=== PATIENT | female | born 1950 | race Two or more races ===

== ENCOUNTER 2018-07-21 14:57 | Emergency (ER) | payer MEDICARE, OTHER ==
[2018-07-21 15:15] VITALS: BP 128/69
--- NOTE | 2018-07-21 16:35 | EDM.PDOC ---
ED HPI GENERAL MEDICAL PROBLEM - General Chief Complaint: ENT Problem Stated Complaint: NOSE BLEED Time Seen by Provider: 07/21/18 15:00 Source of Information: Reports: Patient, Family History Limitations: Reports: No Limitations - History of Present Illness INITIAL COMMENTS - FREE TEXT/NARRATIVE: Ngoc comes into [facility] ED with her 5th bout of R sided epistaxis in the past 2 weeks. Current episode began a few hours ago, but has since stopped. She made an appt with PCP for tomorrow, but would still like to have an examination. There is no anticoagulant use, no hx of polyps or nasal surgery, or sinusitis. She typically uses a cold pack or pinching the nostrils together to control sxs. - Related Data Allergies Allergy/AdvReac Type Severity Reaction Status Date / Time No Known Allergies Allergy Verified 07/21/18 15:10 Home Meds: Home Meds Biotin 1 tab PO DAILY 07/21/18 [History] Calcitriol [Rocaltrol] 1 cap PO DAILY 07/21/18 [History] amLODIPine Besylate [Amlodipine Besylate] 1 tab PO DAILY 07/21/18 [History] Past Medical History - Past Health History Medical/Surgical History: Denies Medical/Surgical History HEENT History: Reports: Epistaxis Cardiovascular History: Reports: Hypertension - Past Surgical History GI Surgical History: Reports: Cholecystectomy Social & Family History - Tobacco Use Smoking Status *Q: Never Smoker Second Hand Smoke Exposure: No - Caffeine Use Caffeine Use: Reports: Coffee - Recreational Drug Use Recreational Drug Use: No ED ROS ENT - Review of Systems Review Of Systems: ROS reveals no pertinent complaints other than HPI. ED EXAM, ENT - Physical Exam Exam: See Below Exam Limited By: No Limitations General Appearance: Alert, WD/WN, No Apparent Distress Eye Exam: Bilateral Eye: EOMI, Normal Inspection, PERRL Ears: Normal External Exam, Normal Canal, Normal TMs Nose: Normal Inspection, Dried Blood, Other (small venule bleeding point on R anterior septum) Mouth/Throat: Normal Inspection, Normal Gums, Normal Lips, Normal Oropharynx, Normal Teeth Head: Normocephalic Neck: Normal Inspection, Supple, Non-Tender, Full Range of Motion Respiratory/Chest: Lungs Clear, Normal Breath Sounds, Chest Non-Tender Cardiovascular: Regular Rate, Rhythm, No Murmur Neurological: Alert, Oriented, CN II-XII Intact, Normal Cognition, Normal Gait, No Motor/Sensory Deficits Psychiatric: Normal Affect, Normal Mood Skin: Warm, Dry, Intact, Normal Color, No Rash Lymphatic: No Adenopathy Course - Vital Signs Text/Narrative:: Following application of Afrin soaked cotton pledget, I identified a bleeding point on the R anterior septum, and used [id number] stick application to chemically cauterize the area. A cotton pledget with antibx oint was inserted for comfort. Patient tolerated well. Last Recorded V/S: Last Vital Signs Temp 36.6 C 07/21/18 15:14 Pulse 65 07/21/18 15:14 Resp 12 07/21/18 15:14 BP 128/69 07/21/18 15:14 Pulse Ox 99 07/21/18 15:14 Departure - Departure Time of Disposition: 16:00 Disposition: Home, Self-Care 01 Condition: Good Clinical Impression: Epistaxis - Discharge Information *PRESCRIPTION DRUG MONITORING PROGRAM REVIEWED*: Not Applicable *COPY OF PRESCRIPTION DRUG MONITORING REPORT IN PATIENT ALEXANDRO: Not Applicable Referrals: Angelica Maldonado NP [Primary Care Provider] - Forms: ED Department Discharge - Problem List & Annotations (1) Epistaxis SNOMED Code(s): 442367305 Code(s): R04.0 - EPISTAXIS Status: Acute Annotation/Comment:: I suggested removal of packing in 4 hours, rest, and follow up with PCP tomorrow. - Problem List Review Problem List Initiated/Reviewed/Updated: Yes - Assessment/Plan Plan: Follow up with PCP tomorrow.
== END 2018-07-21 15:47 | disposition home or self-care (01) ==
LOC: FB.ED 14:57
DX: R04.0 Epistaxis (principal); I10 Essential (primary) hypertension; Z79.899 Other long term (current) drug therapy
CPT/HCPCS: 30901; 99282; 99283

== ENCOUNTER 2021-09-16 06:26 | Day surgery (SDC) | payer MEDICARE, OTHER ==
[~2021-09-16 06:26] MED LIST: Lactated Ringers 1,000 ML IV SCH; Sodium Chloride 0.9% 10 ML Syringe FLUSH PRN
[2021-09-16] MEDS ORDERED: Propofol 200 MG/20 ML SDV IV ONE (06:27)
[2021-09-16] MEDS ORDERED: Lidocaine 1% PF 2 ML SDV INJECT ONE (06:27)
[2021-09-16] MEDS ORDERED: Simethicone Drops 40 MG/0.6 ML 30 ML Bottle ONE (07:42)
[2021-09-16 08:34] VITALS: BP 129/71; PULSE 56
== END 2021-09-16 08:39 | disposition home or self-care (01) ==
LOC: FB.SDS 06:26
PROVIDERS: ATTEND Surgery
DX: Z12.11 Encounter for screening for malignant neoplasm of colon (principal); K57.30 Diverticulosis of large intestine without perforation or abscess without bleeding; D12.6 Benign neoplasm of colon, unspecified; K56.2 Volvulus; E66.9 Obesity, unspecified; I10 Essential (primary) hypertension; Z79.899 Other long term (current) drug therapy; Z90.49 Acquired absence of other specified parts of digestive tract; Z98.890 Other specified postprocedural states; Z68.35 Body mass index [BMI] 35.0-35.9, adult
CPT/HCPCS: 00812-QZ; 88305; A9270-GY; J2704; J7120